=== PATIENT | male | born 1995 | race Caucasian/White ===

== ENCOUNTER 2019-07-19 14:08 | Day surgery (SDC) | payer BC ==
[~2019-07-19] VITALS: Ht 180.3 cm; Wt 55.2 kg
[2019-07-19 14:53] VITALS: BP 116/76; PULSE 102; TEMP 97.8
[2019-07-19 16:20] VITALS: BP 118/82; PULSE 70; TEMP 97.6
--- NOTE | 2019-07-19 16:20 | NUR ---
The patient arrived back to [facility] at this time. The patient ambulated from the cart to the recliner in his room with the stand by assistance of two nurses and appeared to tolerate the activity well. The patient appears drowsy but arouses easily to his name. The patient's girlfriend is at his bedside. Post procedure vital signs were started at this time. Call light is within reach. Will continue to monitor the patient.
[2019-07-19 16:35] VITALS: BP 112/78; PULSE 78
--- NOTE | 2019-07-19 16:35 | NUR ---
The patient appears more alert and agrees to try some apple juice at this time. The patient's vital signs appear stable. Will continue to monitor the patient.
[2019-07-19 16:50] VITALS: BP 118/73; PULSE 70
--- NOTE | 2019-07-19 16:50 | NUR ---
The patient appears to be tolerating the apple juice well and denies wanting anything further to eat or drink at this time. The patien voices a desire to be discharged home.
[2019-07-19] MEDS ORDERED: IMODIUM A-D2 MG PO (16:56)
--- NOTE | 2019-07-19 17:00 | NUR ---
Discharge instructions were reviewed with the patient and his girlfriend at this time. They both verbalized understanding and have no questions for the nurse at this time. The patient's IV to his right forearm was removed and a pressure dressing was applied to the site. The nurse instructed the patient to get dressed and notify the staff when he is ready to be escorted out.
--- NOTE | 2019-07-19 17:10 | NUR ---
The patient was escorted out via wheelchair to a private vehicel by MARY Carcamo. The patient's belongings and discharge paperwork were sent with him. The patient's girlfriend is present to drive him home.
== END 2019-07-19 17:10 | disposition home or self-care (01) ==
LOC: SDCO 14:08 → EDBD 15:45 → SDCO 17:10
DX: R19.7 Diarrhea, unspecified (principal); Z79.82 Long term (current) use of aspirin; K59.00 Constipation, unspecified; R53.83 Other fatigue
CPT/HCPCS: J2250; J3010; J7030